=== PATIENT | female | born 1935 | race Caucasian/White ===

== ENCOUNTER 2023-03-14 07:29 | Inpatient (IN) | payer OTHER ==
[2023-03-14 09:03] LABS: BASO % 0.4 % (0-2.0); EOS % 0.1 % (0-4.5); HEMATOCRIT 45.7 % (32.4-45.2); HEMOGLOBIN 14.8 GM/dL (10.7-15.3); LYMPH % 4.3 % (8-40); MCH 28.1 pg (25.7-33.7); MCHC 32.5 g/dl (32.0-36.0); MEAN CELL VOLUME 86.3 fl (80-96); MEAN PLT VOLUME 8.4 fl (7.5-11.1); MONO % 6.3 % (3.8-10.2); NEUT % 88.9 % (42.8-82.8); PLATELET COUNT 168 10^3/uL (134-434); RBC 5.29 M/mm3 (3.60-5.2); RDW 14.8 % (11.6-15.6); WHITE BLOOD COUNT 9.1 K/mm3 (4.0-10.0)
[2023-03-14 09:27] LABS: ALBUMIN 3.6 g/dl (3.4-5.0)
[2023-03-14 09:28] LABS: BLOOD UREA NITROGEN 18.2 mg/dL (7-18)
[2023-03-14 09:30] LABS: CREATININE 0.8 mg/dL (0.55-1.3)
[2023-03-14 09:32] LABS: TOT PROT 7.2 g/dl (6.4-8.2)
[2023-03-14 09:33] LABS: BILIRUBIN,TOTAL 0.7 mg/dL (0.2-1)
[2023-03-14] MEDS: ACETAMINOPHEN 325 MG TABLET (FP) PO PRN (20:21)
[2023-03-14] MEDS: MUPIROCIN 2% TOPICAL OINTMENT 22 GM TUBE TP SCH (22:15)
[2023-03-14] MEDS: D5-1/2NS+10 MEQ KCL - 10 MEQ/1,000 ML INFUS.BAG IV SCH (22:15)
[2023-03-14] MEDS: ATORVASTATIN CA 10 MG TABLET (FP) PO SCH (22:16)
[2023-03-15 08:06] LABS: BASO % 0.6 % (0-2.0); EOS % 0.2 % (0-4.5); HEMATOCRIT 43.6 % (32.4-45.2); HEMOGLOBIN 14.3 GM/dL (10.7-15.3); MCH 28.4 pg (25.7-33.7); MCHC 32.8 g/dl (32.0-36.0); MEAN CELL VOLUME 86.4 fl (80-96); MONO % 11.1 % (3.8-10.2); NEUT % 78.1 % (42.8-82.8); PLATELET COUNT 136 10^3/uL (134-434); RBC 5.05 M/mm3 (3.60-5.2); WHITE BLOOD COUNT 4.7 K/mm3 (4.0-10.0)
[2023-03-15 08:33] LABS: POTASSIUM 3.9 mmol/L (3.5-5.1)
[2023-03-15 08:52] LABS: BLOOD UREA NITROGEN 20.8 mg/dL (7-18); CALCIUM 8.6 mg/dL (8.5-10.1)
[2023-03-15 08:54] LABS: CREATININE 0.6 mg/dL (0.55-1.3)
[2023-03-15] MEDS: D5-1/2NS+10 MEQ KCL - 10 MEQ/1,000 ML INFUS.BAG IV SCH ×3 (12:06→14:31)
[2023-03-15] MEDS: POLYETHYLENE GLYCOL (HEALTHYLAX) 3350 17 GM PACKET PO SCH (14:43)
[2023-03-15] MEDS: LEVOTHYROXINE NA 25 MCG TABLET (FP) PO ONE (14:45)
[2023-03-15] MEDS: CHOLECALCIFEROL (VIT D3) 5000 UNITS (125 MCG) CAP PO SCH (14:46)
[2023-03-15] MEDS: ALBUTEROL SO4 2.5/IPRATROPIUM 0.5 INH SOL 3 ML VIAL.NEB. NEB SCH (20:30)
[2023-03-15] MEDS: MONTELUKAST NA 10 MG TABLET PO SCH (21:06)
[2023-03-16] MEDS: LEVOTHYROXINE NA 25 MCG TABLET (FP) PO SCH (06:02)
[2023-03-16 08:34] LABS: BASO % 0.5 % (0-2.0); EOS % 0.3 % (0-4.5); HEMOGLOBIN 13.8 GM/dL (10.7-15.3); LYMPH % 18.2 % (8-40); MCH 28.2 pg (25.7-33.7); MCHC 32.8 g/dl (32.0-36.0); MEAN CELL VOLUME 85.9 fl (80-96); MEAN PLT VOLUME 8.9 fl (7.5-11.1); MONO % 10.4 % (3.8-10.2); NEUT % 70.6 % (42.8-82.8); PLATELET COUNT 124 10^3/uL (134-434); RBC 4.89 M/mm3 (3.60-5.2); RDW 14.7 % (11.6-15.6); WHITE BLOOD COUNT 3.5 K/mm3 (4.0-10.0)
[2023-03-16 08:49] LABS: POTASSIUM 3.7 mmol/L (3.5-5.1)
[2023-03-16 08:50] LABS: CALCIUM 8.3 mg/dL (8.5-10.1)
[2023-03-16 08:55] LABS: CREATININE 0.5 mg/dL (0.55-1.3)
[2023-03-16] MEDS: CHOLECALCIFEROL (VIT D3) 1,000 UNIT (25 MCG) TABLET PO SCH (10:07)
[2023-03-16 22:00] LABS: URINE APPEARANCE CLEAR; URINE BILIRUBIN NEGATIVE (NEGATIVE); URINE COLOR YELLOW; URINE GLUCOSE (UA) NEGATIVE (NEGATIVE); URINE KETONE NEGATIVE (NEGATIVE); URINE LEUK ESTERASE NEGATIVE (NEGATIVE); URINE NITRITE NEGATIVE (NEGATIVE); URINE PROTEIN TRACE (NEGATIVE)
[2023-03-17 09:16] LABS: BASO % 0.5 % (0-2.0); EOS % 0.3 % (0-4.5); HEMATOCRIT 41.3 % (32.4-45.2); HEMOGLOBIN 13.4 GM/dL (10.7-15.3); LYMPH % 20.4 % (8-40); MCHC 32.6 g/dl (32.0-36.0); MEAN CELL VOLUME 86.1 fl (80-96); MEAN PLT VOLUME 8.8 fl (7.5-11.1); MONO % 10.7 % (3.8-10.2); NEUT % 68.1 % (42.8-82.8); PLATELET COUNT 127 10^3/uL (134-434); RDW 14.7 % (11.6-15.6); WHITE BLOOD COUNT 3.2 K/mm3 (4.0-10.0)
[2023-03-17 10:16] LABS: POTASSIUM 3.8 mmol/L (3.5-5.1)
[2023-03-17 10:23] LABS: BLOOD UREA NITROGEN 11.7 mg/dL (7-18); CALCIUM 8.2 mg/dL (8.5-10.1)
[2023-03-17 10:26] LABS: CREATININE 0.6 mg/dL (0.55-1.3)
[2023-03-17] MEDS: OSELTAMIVIR PHOSPHATE 75 MG CAPSULE PO ONE (14:59)
[2023-03-17] MEDS: LIDOCAINE 4% PATCH TP SCH (14:59)
[2023-03-17] MEDS: LIDOCAINE PATCH REMOVAL MC SCH (21:39)
[2023-03-18 08:40] LABS: BASO % 0.4 % (0-2.0); EOS % 0.6 % (0-4.5); HEMATOCRIT 39.1 % (32.4-45.2); HEMOGLOBIN 13.2 GM/dL (10.7-15.3); LYMPH % 21.9 % (8-40); MCH 28.5 pg (25.7-33.7); MCHC 33.7 g/dl (32.0-36.0); MEAN CELL VOLUME 84.4 fl (80-96); MEAN PLT VOLUME 8.8 fl (7.5-11.1); MONO % 11.5 % (3.8-10.2); NEUT % 65.6 % (42.8-82.8); PLATELET COUNT 124 10^3/uL (134-434); RBC 4.63 M/mm3 (3.60-5.2); RDW 14.6 % (11.6-15.6)
[2023-03-18 09:07] LABS: POTASSIUM 3.5 mmol/L (3.5-5.1)
[2023-03-18 09:12] LABS: CALCIUM 8.4 mg/dL (8.5-10.1)
[2023-03-18 09:13] LABS: BLOOD UREA NITROGEN 13.1 mg/dL (7-18)
[2023-03-18 09:16] LABS: CREATININE 0.5 mg/dL (0.55-1.3)
[2023-03-18] MEDS: OSELTAMIVIR PHOSPHATE 30 MG CAPSULE PO SCH (09:31)
[2023-03-18] MEDS: guaiFENesin 600 MG TABLET.ER (FP) PO SCH (09:31)
[2023-03-19 07:48] LABS: BASO % 0.5 % (0-2.0); EOS % 0.9 % (0-4.5); HEMATOCRIT 39.8 % (32.4-45.2); MCH 27.9 pg (25.7-33.7); MCHC 32.7 g/dl (32.0-36.0); MEAN CELL VOLUME 85.3 fl (80-96); MEAN PLT VOLUME 8.8 fl (7.5-11.1); MONO % 10.8 % (3.8-10.2); NEUT % 63.8 % (42.8-82.8); PLATELET COUNT 122 10^3/uL (134-434); RBC 4.66 M/mm3 (3.60-5.2); RDW 14.4 % (11.6-15.6); WHITE BLOOD COUNT 3.8 K/mm3 (4.0-10.0)
[2023-03-19 08:11] LABS: POTASSIUM 3.7 mmol/L (3.5-5.1)
[2023-03-19 08:12] LABS: BLOOD UREA NITROGEN 9.7 mg/dL (7-18); CALCIUM 8.3 mg/dL (8.5-10.1)
[2023-03-19 08:16] LABS: CREATININE 0.5 mg/dL (0.55-1.3)
[2023-03-20 08:52] LABS: BASO % 0.6 % (0-2.0); EOS % 1.2 % (0-4.5); HEMATOCRIT 39.3 % (32.4-45.2); HEMOGLOBIN 12.9 GM/dL (10.7-15.3); LYMPH % 27.3 % (8-40); MCH 27.9 pg (25.7-33.7); MCHC 32.7 g/dl (32.0-36.0); MEAN CELL VOLUME 85.4 fl (80-96); MEAN PLT VOLUME 9.1 fl (7.5-11.1); MONO % 12.6 % (3.8-10.2); NEUT % 58.3 % (42.8-82.8); PLATELET COUNT 136 10^3/uL (134-434); RBC 4.61 M/mm3 (3.60-5.2); RDW 14.5 % (11.6-15.6)
[2023-03-20 09:04] LABS: POTASSIUM 3.5 mmol/L (3.5-5.1)
[2023-03-20 09:05] LABS: CALCIUM 8.7 mg/dL (8.5-10.1)
[2023-03-20 09:06] LABS: BLOOD UREA NITROGEN 11.6 mg/dL (7-18)
[2023-03-20 09:09] LABS: CREATININE 0.5 mg/dL (0.55-1.3)
[2023-03-20] MEDS ORDERED: MUPIROCIN 2% TOPICAL OINTMENT 22 GM TUBE TP SCH (11:36)
[2023-03-20] MEDS ORDERED: POTASSIUM CHLORIDE TABS 20 MEQ TABLET.ER (FP) PO ONE (17:24)
[2023-03-20] MEDS: POTASSIUM CHLORIDE TABS 20 MEQ TABLET.ER (FP) PO ONE (17:52)
[2023-03-21] MEDS ORDERED: D5-1/2NS+10 MEQ KCL - 10 MEQ/1,000 ML INFUS.BAG IV SCH (02:36)
[2023-03-21] MEDS: LIDOCAINE PATCH REMOVAL MC SCH ×2 (03:44→21:14)
[2023-03-21] MEDS: LEVOTHYROXINE NA 25 MCG TABLET (FP) PO SCH (06:00)
[2023-03-21] MEDS: ALBUTEROL SO4 2.5/IPRATROPIUM 0.5 INH SOL 3 ML VIAL.NEB. NEB SCH (07:50)
[2023-03-21] MEDS: LIDOCAINE 4% PATCH TP SCH (10:42)
[2023-03-21] MEDS: D5-1/2NS+10 MEQ KCL - 10 MEQ/1,000 ML INFUS.BAG IV SCH (10:43)
[2023-03-21] MEDS: OSELTAMIVIR PHOSPHATE 30 MG CAPSULE PO SCH (10:43)
[2023-03-21] MEDS: POLYETHYLENE GLYCOL (HEALTHYLAX) 3350 17 GM PACKET PO SCH (10:43)
[2023-03-21] MEDS: CHOLECALCIFEROL (VIT D3) 1,000 UNIT (25 MCG) TABLET PO SCH (10:44)
[2023-03-21] MEDS: guaiFENesin 600 MG TABLET.ER (FP) PO SCH (10:44)
[2023-03-21 11:05] LABS: BASO % 0.3 % (0-2.0); EOS % 0.8 % (0-4.5); HEMATOCRIT 40.4 % (32.4-45.2); HEMOGLOBIN 13.3 GM/dL (10.7-15.3); LYMPH % 19.1 % (8-40); MCH 28.1 pg (25.7-33.7); MEAN CELL VOLUME 84.9 fl (80-96); MONO % 8.4 % (3.8-10.2); NEUT % 71.4 % (42.8-82.8); PLATELET COUNT 177 10^3/uL (134-434); RBC 4.76 M/mm3 (3.60-5.2); RDW 14.7 % (11.6-15.6); WHITE BLOOD COUNT 5.6 K/mm3 (4.0-10.0)
[2023-03-21 11:30] LABS: POTASSIUM 4.1 mmol/L (3.5-5.1)
[2023-03-21 11:34] LABS: BLOOD UREA NITROGEN 11.7 mg/dL (7-18)
[2023-03-21 11:38] LABS: CREATININE 0.5 mg/dL (0.55-1.3)
[2023-03-21 15:32] VITALS: BMI 25.0
[2023-03-21] MEDS: ATORVASTATIN CA 10 MG TABLET (FP) PO SCH (21:14)
[2023-03-21] MEDS: MONTELUKAST NA 10 MG TABLET PO SCH (21:14)
[2023-03-21] MEDS: ACETAMINOPHEN 325 MG TABLET (FP) PO PRN (21:15)
[2023-03-21] MEDS: MUPIROCIN 2% TOPICAL OINTMENT 22 GM TUBE TP SCH (22:27)
[2023-03-22 09:52] LABS: BASO % 0.2 % (0-2.0); EOS % 0.4 % (0-4.5); HEMATOCRIT 37.6 % (32.4-45.2); HEMOGLOBIN 12.8 GM/dL (10.7-15.3); LYMPH % 14.7 % (8-40); MCH 28.5 pg (25.7-33.7); MCHC 33.9 g/dl (32.0-36.0); MEAN PLT VOLUME 9.1 fl (7.5-11.1); MONO % 7.8 % (3.8-10.2); NEUT % 76.9 % (42.8-82.8); PLATELET COUNT 205 10^3/uL (134-434); RBC 4.48 M/mm3 (3.60-5.2); RDW 14.6 % (11.6-15.6); WHITE BLOOD COUNT 8.3 K/mm3 (4.0-10.0)
[2023-03-22 10:09] LABS: POTASSIUM 3.9 mmol/L (3.5-5.1)
[2023-03-22 10:11] VITALS: RESP 18
[2023-03-22 10:22] LABS: BLOOD UREA NITROGEN 13.6 mg/dL (7-18)
[2023-03-22 10:25] LABS: CREATININE 0.5 mg/dL (0.55-1.3)
[2023-03-22] MEDS: HEPARIN NA (PORCINE) 5,000 UNITS/ML 1ML VIAL SQ SCH (15:01)
[2023-03-22] MEDS: ALBUTEROL SO4 2.5/IPRATROPIUM 0.5 INH SOL 3 ML VIAL.NEB. NEB PRN (15:30)
[2023-03-24 14:45] VITALS: BP 131/50; PULSE 90; TEMP 97.4
== END 2023-03-24 17:30 | DRG 194 ==
LOC: JER 07:29 → JERBED 12:36 → OBSVTOIN 12:44 → J4S 17:53 → J5S 03-20 19:09
PROVIDERS: ADMIT Internal Medicine; ATTEND Internal Medicine
DX: J10.1 Influenza due to other identified influenza virus with other respiratory manifestations (principal); I47.10 Supraventricular tachycardia, unspecified; M62.82 Rhabdomyolysis; H35.30 Unspecified macular degeneration; F03.90 Unspecified dementia, unspecified severity, without behavioral disturbance, psychotic disturbance, mood disturbance, and anxiety; E78.5 Hyperlipidemia, unspecified; S00.11XA Contusion of right eyelid and periocular area, initial encounter; E86.0 Dehydration; D69.6 Thrombocytopenia, unspecified; M62.81 Muscle weakness (generalized); D72.828 Other elevated white blood cell count; S80.211A Abrasion, right knee, initial encounter; W06.XXXA Fall from bed, initial encounter; Y92.092 Bedroom in other non-institutional residence as the place of occurrence of the external cause; Y99.9 Unspecified external cause status
CPT/HCPCS: 0241U-QW; 36415; 70450-TC; 70486-TC; 71045-TC-FY; 72125-TC; 72170-TC-FY; 80048; 80053; 80061; 81003; 82550; 82553; 83036; 84484; 85025; 86850; 86900; 86901; 93306-TC; 94640; 97116-GP; 99285-25; G0378; J1644